=== PATIENT | female | born 1995 | race Caucasian/White ===

== ENCOUNTER 2018-09-08 18:55 | Emergency (ER) | payer OTHER ==
[2018-09-08 19:19] VITALS: BP 123/55
--- NOTE | 2018-09-08 19:36 | UC ---
Back Pain HPI - HPI Summary HPI Summary: pt states she has a diagnosis of scoliosis for about 2 months. she is having back pain not relieved by the Flexeril and Tylenol. she went to PT once but has trouble with those appointments due to location and transportation. she is requesting additional pain treatment. - History of Current Complaint Chief Complaint: UCBackPain Stated Complaint: BACK PAIN Time Seen by Provider: 09/08/18 19:22 Hx Obtained From: Patient Hx Last Menstrual Period: August 16 Onset/Duration: Gradual Onset Timing: Constant Pain Intensity: 7 Aggravating Factor(s): Movement Associated Signs And Symptoms: Positive: Other - no saddle anesthesia. Negative : Fever, Weakness, Numbness, Tingling, Abdominal Pain, Flank Pain, Bladder Incontinence, Bowel Incontinence - Risk Factors Cauda Equina Risk Factors: Negative Epidural Abscess Risk Factors: Negative - Allergies/Home Medications Allergies/Adverse Reactions: Allergies Allergy/AdvReac Type Severity Reaction Status Date / Time No Known Allergies Allergy Verified 09/08/18 19:19 Home Medications: Home Medications Acetaminophen TAB* [Tylenol TAB*] 650 mg PO Q4H PRN 09/08/18 [History Confirmed 09/08/18] Cyclobenzaprine TAB* [Flexeril 10 MG TAB*] 10 mg PO PRN 09/08/18 [History] PMH/Surg Hx/FS Hx/Imm Hx - Additional Past Medical History Additional PMH: scoliosis - Surgical History Surgical History: Yes Surgery Procedure, Year, and Place: tonsils. cyst removed from left breast - Family History Known Family History: Positive: Non-Contributory - Social History Lives: With Family Alcohol Use: None Substance Use Type: None Smoking Status (MU): Never Smoked Tobacco Review of Systems All Other Systems Reviewed And Are Negative: Yes Constitutional: Negative: Fever, Chills Skin: Negative: Rash Gastrointestinal: Negative: Abdominal Pain Musculoskeletal: Positive: Decreased ROM - Back due to pain Neurological: Negative: Weakness, Paresthesia, Numbness Physical Exam Triage Information Reviewed: Yes Appearance: Well-Appearing Vital Signs: Initial Vital Signs Temp 98.8 F 09/08/18 19:11 Pulse 87 09/08/18 19:11 Resp 18 09/08/18 19:11 BP 123/55 09/08/18 19:11 Pulse Ox 99 09/08/18 19:11 Vital Signs Reviewed: Yes Neck: Positive: Supple, Nontender, No Lymphadenopathy Respiratory: Positive: Lungs clear, Normal breath sounds Cardiovascular: Positive: RRR, No Murmur Abdomen Description: Positive: Nontender. Negative: Pulsatile Mass Musculoskeletal: Positive: Other: - C-spine non tender. Thoracic/lumbar spine junction has an obvious curvature but the spine is non tender. ROM to mid and low back limited by pain. 5/5 strength, 2+ reflexes and sensation intactx4. No saddle aneshtesia. Steady gait. Neurological: Positive: Alert Psychological: Positive: Age Appropriate Behavior Skin Exam: Normal Skin: Negative: Rashes Back Pain Course/Dx - Course Course Of Treatment: out pt xray reviewed and confirms a mild scoliosis. copy given to pt for a PT F/ U here at the [facility] which pt feels will be much more accessible for her. - Differential Dx/Diagnosis Differential Diagnosis/HQI/PQRI: Other - no concern for fx, infection, acute abdomen or cauda equina. will add NSAID to her tx plus have her take the flexeril and tylenol routinely as well. will also refer her to PT here do to travel limitations. Provider Diagnosis: Back pain Discharge - Sign-Out/Discharge Documenting (check all that apply): Patient Departure All imaging exams completed and their final reports reviewed: No Studies - Discharge Plan Condition: Stable Disposition: HOME Prescriptions: Naproxen [Naprosyn 500 mg tab] 500 mg PO BID 7 Days #14 tablet Patient Education Materials: Back Pain (ED) Referrals: Savanna Mendenhall MD [Primary Care Provider] - 7 Days Additional Instructions: TAKE THE NAPROXEN, TYLENOL AND FLEXERIL ROUTINELY X 5 DAYS THEN NEEDED. FOLLOW UP WITH PT SOON POSSIBLE. - Billing Disposition and Condition Condition: STABLE Disposition: Home
== END 2018-09-08 19:58 | disposition home or self-care (01) ==
LOC: UCCORT 18:55
DX: M54.9 Dorsalgia, unspecified (principal); M41.9 Scoliosis, unspecified
CPT/HCPCS: 99212; G0463

== ENCOUNTER 2018-10-24 17:28 | Emergency (ER) | payer OTHER ==
[2018-10-24 17:56] VITALS: BP 125/69
--- NOTE | 2018-10-24 18:23 | UC ---
Dental HPI - HPI Summary HPI Summary: Pt presents with c/i right front dental pain that began 1-2 days ago. Pt last saw a dental provider in 2011 due to inability to afford dental care. Pt denies injury. Pt states she is has significant pain with hot and cold food items. - History of Current Complaint Chief Complaint: UCDentalProblem Stated Complaint: DENTAL PAIN Time Seen by Provider: 10/24/18 18:06 Hx Obtained From: Patient Hx Last Menstrual Period: 10/17/18 ?: No Onset/Duration: Sudden Onset, Lasting Days, Still Present Severity: Severe Pain Intensity: 8 Aggravating Factor(s): Heat, Cold, Chewing Related History: Swelling - Allergies/Home Medications Allergies/Adverse Reactions: Allergies Allergy/AdvReac Type Severity Reaction Status Date / Time No Known Allergies Allergy Verified 10/24/18 17:51 PMH/Surg Hx/FS Hx/Imm Hx Previously Healthy: Yes - Surgical History Surgical History: Yes Surgery Procedure, Year, and Place: tonsils. cyst removed from left breast - Family History Known Family History: Positive: Non-Contributory - Social History Occupation: Employed Full-time Lives: With Family Alcohol Use: None Substance Use Type: None Smoking Status (MU): Never Smoked Tobacco Have You Smoked in the Last Year: No Review of Systems All Other Systems Reviewed And Are Negative: Yes Constitutional: Positive: Negative Skin: Positive: Negative Eyes: Positive: Negative ENT: Positive: Dental Pain Respiratory: Positive: Negative Cardiovascular: Positive: Negative Gastrointestinal: Positive: Negative Genitourinary: Positive: Negative Motor: Positive: Negative Neurovascular: Positive: Negative Musculoskeletal: Positive: Negative Neurological: Positive: Negative Psychological: Positive: Negative Is Patient Immunocompromised?: No Physical Exam Triage Information Reviewed: Yes Appearance: Pain Distress Vital Signs: Initial Vital Signs Temp 98.1 F 10/24/18 17:52 Pulse 93 10/24/18 17:52 Resp 16 10/24/18 17:52 BP 125/69 10/24/18 17:52 Pulse Ox 100 10/24/18 17:52 Vital Signs Reviewed: Yes Eye Exam: Normal ENT Exam: Normal Dental: Positive: Percussion Tenderness @, Gross Decay/Caries @ Neck exam: Normal Neck: Positive: Supple, Nontender, No Lymphadenopathy Respiratory Exam: Normal Cardiovascular Exam: Normal Musculoskeletal Exam: Normal Neurological Exam: Normal Psychological Exam: Normal Skin Exam: Normal Dental Complaint Course/Dx - Differential Dx/Diagnosis Differential Diagnosis/Dx: Dental Abscess, Dental Caries, Fractured Tooth Provider Diagnosis: Pain, dental, Poor dentition Discharge ED - Sign-Out/Discharge Documenting (check all that apply): Patient Departure All imaging exams completed and their final reports reviewed: No Studies - Discharge Plan Condition: Stable Disposition: HOME Prescriptions: Amoxicillin PO (*) [Amoxicillin 500 MG CAP*] 500 mg PO Q12H #20 cap Ibuprofen TAB* [Motrin TAB* 800 MG] 800 mg PO Q8H PRN #21 tab PRN Reason: Pain - Mild Lidocaine 2% VISCOUS* [Xylocaine 2% Viscous*] 15 ml SWISH SPIT Q4H PRN #1 btl PRN Reason: Pain - Mild Patient Education Materials: Toothache (ED) Referrals: Felice Rebollar MD [Primary Care Provider] - Additional Instructions: Please follow up as soon as possible with your dental care provider. - Billing Disposition and Condition Condition: STABLE Disposition: Home
== END 2018-10-24 18:31 | disposition home or self-care (01) ==
LOC: UCCORT 17:28
DX: K08.89 Other specified disorders of teeth and supporting structures (principal)
CPT/HCPCS: 99212; G0463